=== PATIENT | female | born 1995 | race Hispanic/Latino ===

== ENCOUNTER 2022-11-29 03:53 | Inpatient (IN) | payer BC ==
[2022-11-29 04:40] VITALS: BMI 29.0
[2022-11-29 05:04] LABS: Hemoglobin 10.6 g/dL (12.0-15.5); Mean Corpuscular HGB CONC 32.6 g/dL (32.0-36.0); Mean Corpuscular Hemoglobin 26.6 pg (27.0-33.0); Mean Corpuscular Volume 81.7 fl (81.6-98.3); Platelet Count 196 10x3/uL (150-450); Red Blood Cell (RBC) Count 3.98 10x6/uL (3.90-5.03); White Blood Cell (WBC) Count 5.5 10x3/uL (3.5-10.5)
[2022-11-29 05:33] LABS: HBSAg Index 0.17 S/CO (0-0.99); Hep B Surf Ag - L&D Non-Reactive S/CO (NonReactive); Syphilis Antibody Nonreactive (Nonreactive); Syphilis Antibody Index 0.04 S/CO (<1.00 Non-Reactive)
[2022-11-29] MEDS ORDERED: NS w/ Oxytocin 30 units 500 ML ONE (06:35)
[2022-11-29] MEDS ORDERED: Lidocaine 1% (PF) 30 ML VIAL ONE (06:36)
[2022-11-29] MEDS ORDERED: Ibuprofen 800 MG TAB PO PRN (06:58)
[2022-11-29] MEDS ORDERED: Lidocaine 1% (PF) 30 ML VIAL SC PRN (06:58)
[2022-11-29] MEDS ORDERED: HYDROcodone/Acetaminophen 5/325 mg Tablet PO PRN ×2 (06:58→09:21)
[2022-11-29] MEDS ORDERED: Promethazine HCl 25 MG/ML VIAL IM PRN ×2 (06:59→09:21)
[2022-11-29] MEDS ORDERED: hydrALAZINE 20 MG/ML VIAL SLOW IVP PRN ×2 (06:59→09:21)
[2022-11-29] MEDS ORDERED: Ondansetron PF 4 MG/2 ML Vial IVP PRN ×2 (06:59→09:21)
[2022-11-29] MEDS ORDERED: NS w/ Oxytocin 30 units 500 ML IV SCH (07:00)
[2022-11-29] MEDS ORDERED: Lactated Ringer's 1,000 ML IV SCH (07:00)
[2022-11-29] MEDS ORDERED: Boostrix 0.5 ML (Tdap) VIAL (>/=7 yrs of age) IM ONE (09:21)
[2022-11-29] MEDS ORDERED: Preparation H Ointment 28 GM TUBE PR PRN (09:21)
[2022-11-29] MEDS ORDERED: Bisacodyl 10 MG SUPP PR PRN (09:21)
[2022-11-29] MEDS ORDERED: Lanolin Ointment 7 GM TUBE TOP PRN (09:21)
[2022-11-29] MEDS ORDERED: Milk Of Magnesia 30 ML UDCUP PO PRN (09:21)
[2022-11-29] MEDS ORDERED: Benzocaine-Menthol 82.5 ML CAN TOP PRN (09:21)
[2022-11-29] MEDS ORDERED: diphenhydrAMINE 25 MG CAP PO PRN (09:21)
[2022-11-29] MEDS ORDERED: Ferrous Sulfate 325 MG TAB PO SCH (10:00)
[2022-11-29] MEDS ORDERED: Docusate 100 MG CAP PO SCH (10:00)
[2022-11-29] MEDS ORDERED: Prenatal Vitamin 1 TAB PO SCH (10:00)
[2022-11-29] MEDS: Ferrous Sulfate 325 MG TAB PO SCH (11:12)
[2022-11-29] MEDS: Ibuprofen 800 MG TAB PO SCH ×2 (14:07→21:15)
[2022-11-29] MEDS: Docusate 100 MG CAP PO SCH (21:15)
[2022-11-30] MEDS: Ibuprofen 800 MG TAB PO SCH (05:04)
[2022-11-30] MEDS: Ferrous Sulfate 325 MG TAB PO SCH (06:59)
[2022-11-30 07:34] VITALS: BP 105/68; TEMP 97.8
[2022-11-30] MEDS: Docusate 100 MG CAP PO SCH (07:47)
[2022-11-30] MEDS ORDERED: Prenatal Vitamin 1 TAB PO SCH (09:00)
== END 2022-11-30 12:57 | disposition home or self-care (01) | DRG 807 ==
LOC: CSHLD/OP 03:53 → CSHLD 05:00 → CSHPED 10:12
PROVIDERS: ADMIT Student in an Organized Health Care Education/Training Program; ATTEND Student in an Organized Health Care Education/Training Program
PROC: 10E0XZZ Delivery of Products of Conception, External Approach (ICD-10-PCS; principal; 2022-11-29)
PROC: 3E033VJ Introduction of Other Hormone into Peripheral Vein, Percutaneous Approach (ICD-10-PCS; 2022-11-29)
DX: O48.0 Post-term pregnancy (principal); Z37.0 Single live birth; Z3A.40 40 weeks gestation of pregnancy; Z90.49 Acquired absence of other specified parts of digestive tract
CPT/HCPCS: 85027; 86780; 86850; 86900; 86901; 87340; 99285; J2590